=== PATIENT | female | born 1955 | race Caucasian/White ===

== ENCOUNTER 2018-08-22 00:15 | Observation (INO) ==
[2018-08-22] MEDS ORDERED: Metoprolol Inj 5 MG/5 ML Vial IV.PUSH ONE (02:19)
[2018-08-22 02:36] LABS: Bilirubin,Urine Negative (Negative); Clarity,Urine Clear (Clear); Color,Urine Yellow (Yellw/Straw); Glucose,Urine (UA) Negative (Negative); Leukocyte Esterase,Urine Negative (Negative); Nitrite,Urine Negative (Negative); Urobilinogen,Urine 0.2 mg/dL (Less than 2)
--- NOTE | 2018-08-22 02:38 | ED ---
HPI General Chief Complaint: Hypertension Stated Complaint: hypoglycemia/htn x 2 wks Time Seen by Provider: 08/22/18 02:03 Source: patient History of Present Illness HPI narrative: 62-year-old female with a past medical history of hypertension presents to the emergency room complaining of recurrent episodes of palpitations and near syncope. Patient had one episode prior to arrival to the ER while [place] the movie theater. Patient felt a racing heart rate with associated shortness of breath, chills, near syncope and generalized weakness that lasted about 30 minutes. Symptoms resolved spontaneously. Patient denies other symptoms at this time. Patient had multiple episodes similar to this under different circumstances. Patient is noncompliant with hypertension medication or dyslipidemia meds. She smokes regularly but denies alcohol or drug use.Patient also states for the last 2 weeks that she had several episodes of positional syncope from laying supine there is relieved by sitting up immediately. Related Data Home Medications Medication Instructions Recorded Confirmed No Known Home Medications 08/22/18 08/22/18 Allergies Allergy/AdvReac Type Severity Reaction Status Date / Time codeine Allergy Intermediate Shortness Verified 08/22/18 01:07 of Breath meperidine Allergy Intermediate Shortness Verified 08/22/18 01:07 of Breath Review of Systems Constitutional Denies fever(s) Eyes Denies change in vision ENT Denies headache(s) and Denies nasal congestion Cardiovascular Reports rapid heart rate, Reports lightheadedness, Reports palpitations and Reports dyspnea Respiratory Denies dyspnea Gastrointestinal Denies abdominal pain Genitourinary Denies difficulty voiding Musculoskeletal Denies myalgias Integumentary/Breasts Denies rash Neurologic Denies headache(s) Psychiatric Denies depression Endocrine Denies polyuria Hematologic/Lymphatic Denies easy bruising PMFSH Medical History Medical History H/O: hysterectomy (Acute) Hypercholesteremia (Acute) Hypertension (Acute) Surgical History Surgical History Hx of section (Acute) Social History Social History Substance History: No History of Abuse Smoking Status: Current every day smoker Tobacco Type: Cigarettes How Often Do You Have a Drink Containing Alcohol: Monthly or less Immunization History Tetanus Immunization: Unsure Exam [facility] Head: normocephalic and atraumatic Nose: no nasal discharge and no epistaxis Mouth: moist mucous membranes Eyes Sclera: normal sclerae Pupils: PERRL Neck Neck: trachea midline and no JVD Resp Effort & Inspection: no use of accessory muscles Auscultation: clear to auscultation bilaterally Cardio Rate: regular rate Rhythm: regular rhythm Heart Sounds: no murmurs GI Inspection: non-distended Palpation: soft, no hepatosplenomegaly and nontender Skin General: dry skin (warm) Neuro General: alert and awake Cranial Nerves: other Speech: speech normal Motor: no movement abnormalities noted Extrem General: normal to inspection, no clubbing, no cyanosis and no edema Psych Mood: congruent mood Affect: normal affect Judgment: judgment good Course Reevaluation(s) Reevaluation #1: Patient continues to have elevated blood pressure however she denies chest pain. Patient agreed to be admitted to the hospital for observation and blood pressure control. Time: 03:59 Initial Documented Vital Signs Temperature 98.4 F 08/22/18 00:27 Pulse Rate 68 08/22/18 00:27 Respiratory Rate 18 08/22/18 00:27 Blood Pressure 206/89 H 08/22/18 00:27 Pulse Oximetry 99 08/22/18 00:27 Last Documented Vital Signs Temperature 98.4 F 08/22/18 00:27 Pulse Rate 72 08/22/18 03:20 Respiratory Rate 18 08/22/18 03:20 Blood Pressure 183/77 H 08/22/18 03:20 Pulse Oximetry 100 08/22/18 03:20 Medical Decision Making [facility] Narrative Medical Screen Exam Complete: Yes Emergency Medical Condition: Yes Lab Data Result diagrams: 08/22/18 02:35 08/22/18 02:35 Lab Results 08/22/18 08/22/18 08/22/18 Range/Units 02:00 02:35 02:35 CBC w Diff Auto diff final WBC 7.4 (4.0-11.0) th/mm3 RBC 4.61 (4.00-5.30) mil/mm3 Hgb 14.2 (11.6-15.3) gm/dL Hct 42.3 (35.0-46.0) % MCV 91.6 (80.0-100.0) fL MCH 30.8 (27.0-34.0) pg MCHC 33.6 (32.0-36.0) % RDW 12.2 (11.6-17.2) % Plt Count 220 (150-450) th/mm3 MPV 8.4 (7.0-11.0) fL Neut % (Auto) 71.4 H (16.0-70.0) % Lymph % (Auto) 22.2 (9.0-44.0) % [place] % (Auto) 4.2 (0.0-8.0) % Eos % (Auto) 1.4 (0.0-4.0) % Baso % (Auto) 0.8 (0.0-2.0) % Neut # (Auto) 5.2 (1.8-7.7) th/mm3 Lymph # (Auto) 1.7 (1.0-4.8) th/mm3 [place] # (Auto) 0.3 (0.0-0.9) th/mm3 Eos # (Auto) 0.1 (0.0-0.4) th/mm3 Baso # (Auto) 0.1 (0.0-0.2) th/mm3 WBC Differential . Differential Comment . Sodium 140 (136-145) meq/L Potassium 3.8 (3.5-5.1) meq/L Chloride 107 (98-107) meq/L Carbon Dioxide 27.1 (21.0-32.0) meq/L Anion Gap 6 (5-15) meq/L BUN 17 (7-18) mg/dL Creatinine 0.71 (0.50-1.00) mg/dL Estimated GFR 84 L (>89) mL/min Random Glucose 124 H (74-106) mg/dL Calcium 8.6 (8.5-10.1) mg/dL Total Bilirubin 0.3 (0.2-1.0) mg/dL AST 21 (15-37) U/L ALT 44 (10-53) U/L Alkaline Phosphatase 83 (45-117) U/L Troponin I Less than 0.02 L (0.02-0.05) ng/mL Total Protein 7.6 (6.4-8.2) g/dL Albumin 3.8 (3.4-5.0) g/dL Lipase 202 (73-393) U/L Urine Color Yellow (Yellw/Straw) Urine Clarity Clear (Clear) Urine pH 6.0 (5.0-8.5) Ur Specific [place] 1.010 (1.002-1.035) Urine Protein Negative (Neg-Trace) mg/dL Urine Glucose (UA) Negative (Negative) mg/dL Urine Ketones Negative (Negative) mg/dL Urine Occult Blood Small H (Negative) Urine Nitrate Negative (Negative) Urine Bilirubin Negative (Negative) Urine Urobilinogen 0.2 (Less than 2) mg/dL Ur Leukocyte Esterase Negative (Negative) Urine RBC 4-15 H (0-3) /hpf Urine WBC 0-5 (0-5) /hpf Ur Squamous Epith Cells 0-5 (0-5) /hpf Urine Bacteria Few H (None) /hpf Micro UA Comment Culture not ind Ur Microscopic Review Microscopic reviewed Urine Culture Comments Culture not ind Serum Alcohol Less than 3 (0-5) mg/dL Imaging Data Radiologist's impression: Chest X-Ray 08/22/18 02:17 CONCLUSION: No acute cardiopulmonary disease. ECG Data EKG Prior to Arrival: No Attestation: I personally reviewed and interpreted this ECG as follows: Interpretation: Rhythm with a ventricular rate of 61. Normal CO intervals, normal QRS duration and nonspecific T wave changes. Discharge Plan Discharge Disposition Patient Disposition: 30 Still Patient Discharge Condition Condition: Stable Discharge Details Diagnosis: Accelerated hypertension, Heart palpitations, Postural dizziness with near syncope Physicians Team ED Provider: Apolinar Severino Primary Care Provider: Primary Care Mel Osorio Rxs /Orders / Referrals /Forms Prescriptions: No Action No Known Home Medications RF: 0 Discharge Interventions Interventions: Vital Signs Last Done: 08/22/18 01:10 Status ED Status: With Doctor
[2018-08-22] MEDS ORDERED: hydrALAZINE HCl Inj 20 MG/ML Vial IV.PUSH ONE ×3 (02:46→04:20)
[2018-08-22 02:47] LABS: Baso # (Auto) 0.1 th/mm3 (0.0-0.2); Baso % (Auto) 0.8 % (0.0-2.0); Eos # (Auto) 0.1 th/mm3 (0.0-0.4); Eos % (Auto) 1.4 % (0.0-4.0); Hematocrit 42.3 % (35.0-46.0); Hemoglobin 14.2 gm/dL (11.6-15.3); Lymph # (Auto) 1.7 th/mm3 (1.0-4.8); Lymph % (Auto) 22.2 % (9.0-44.0); Mean Corpuscular HGB Conc 33.6 % (32.0-36.0); Mean Corpuscular Hemoglobin 30.8 pg (27.0-34.0); Mean Corpuscular Volume 91.6 fL (80.0-100.0); Mean Platelet Volume 8.4 fL (7.0-11.0); Mono # (Auto) 0.3 th/mm3 (0.0-0.9); Mono % (Auto) 4.2 % (0.0-8.0); Neut # (Auto) 5.2 th/mm3 (1.8-7.7); Neut % (Auto) 71.4 % (16.0-70.0); Platelet Count 220 th/mm3 (150-450); Red Blood Count 4.61 mil/mm3 (4.00-5.30); Red Cell Distribution Width 12.2 % (11.6-17.2); White Blood Count 7.4 th/mm3 (4.0-11.0)
[2018-08-22 02:52] LABS: Bacteria,Urine Few /hpf; Squamous Epithelial Cell,Urine 0-5 /hpf (0-5); WBC,Urine 0-5 /hpf (0-5)
[2018-08-22 02:53] LABS: Chloride 107 meq/L (98-107); Potassium 3.8 meq/L (3.5-5.1); Sodium 140 meq/L (136-145)
[2018-08-22 02:56] LABS: Calcium 8.6 mg/dL (8.5-10.1)
[2018-08-22 02:57] LABS: Albumin 3.8 g/dL (3.4-5.0); Anion Gap 6 meq/L (5-15); Blood Urea Nitrogen 17 mg/dL (7-18); Carbon Dioxide 27.1 meq/L (21.0-32.0); Glucose,Random 124 mg/dL (74-106); Lipase 202 U/L (73-393)
[2018-08-22 03:00] LABS: Alanine Aminotransferase 44 U/L (10-53); Aspartate Aminotransferase 21 U/L (15-37); Glomerular Filtration Rate 84 mL/min (>89)
[2018-08-22] MEDS ORDERED: Metoprolol Inj 5 MG/5 ML Vial IV.PUSH SCH (03:00)
[2018-08-22 03:01] LABS: Total Protein 7.6 g/dL (6.4-8.2)
[2018-08-22 03:03] LABS: Alkaline Phosphatase 83 U/L (45-117)
--- NOTE | 2018-08-22 03:03 | XR ---
EXAM DATE: 08/22/2018 2:36 AM EST AGE/SEX: 62 years / Female INDICATIONS: Shortness of breath. CLINICAL DATA: This is the patient's initial encounter. Patient reports that signs and symptoms have been present for 2 weeks and indicates a pain score of 0/10. MEDICAL/SURGICAL HISTORY: Hypertension. None. COMPARISON: No prior exams available for comparison. FINDINGS: A single AP view of the chest demonstrates the lungs to be symmetrically aerated without evidence of mass, infiltrate or effusion. The cardiomediastinal contours are unremarkable. Osseous structures a re intact. CONCLUSION: No acute cardiopulmonary disease. Electronically signed by: Maycol Muñoz MD 08/22/2018 3:02 AM EST
[2018-08-22] MEDS ORDERED: Bisacodyl 10 MG Supp RECTAL PRN (04:14)
[2018-08-22] MEDS ORDERED: Acetaminophen 325 MG Tablet PO PRN (04:14)
[2018-08-22] MEDS: Sod Chloride 0.9% Inj 1,000 ML IV.CONT SCH ×3 (05:05→23:54)
[2018-08-22] MEDS: Heparin - SQ 10,000 UNITS/ML Vial SQ SCH ×4 (05:05→21:28)
[2018-08-22] MEDS: amLODIPine 5 MG Tablet PO SCH (08:20)
--- NOTE | 2018-08-22 08:35 | ECG ---
Date Performed: 08/22/2018 Time Performed: 02:28:08 PTAGE: 62 years EKG: Sinus rhythm NORMAL ECG NO PREVIOUS TRACING DOCTOR: Jarad Reynoso Interpretating Date/Time 08/22/2018 08:32:31
--- NOTE | 2018-08-22 14:04 | P.HPIM ---
History of Present Illness Primary Care Physician: No Primary Care Physician History of Present Illness: This patient is a 62-year-old female with a diagnosis of hypertension. The patient presented with complaints of recurrent episodes of palpitations and presyncope. She denies losing consciousness. Patient says she felt like her heart was racing and had some shortness of breath with the episode. The episode lasted approximately 30 minutes and then her symptoms end up resolving. She denied having any chest pain with the episode. Patient does have hypertension and is noncompliant with her medication. She says that many times she has noticed that she begins to have symptoms when she stands up from a sitting position rapidly. Orthostatic vital signs which were done in the ER were negative. Past medical history hypertension Past surgical history patient has had 4 C-sections in the past, she has also had a partial hysterectomy in the past. Social history the patient has extensive history of tobacco smoking. She drinks alcohol socially, denies any history of drug use Family history noncontributory. Review of Systems All other systems reviewed negative except as stated in HPI [facility] - History History Provided By: Patient - Medical History Medical History: Medical History (Last Reviewed 08/22/18 @ 02:37 by Apolinar Severino) H/O: hysterectomy Hypercholesteremia Hypertension - Surgical History Surgical History: Surgical History (Last Reviewed 08/22/18 @ 02:37 by Apolinar Severino) Hx of section - Tobacco History Second Hand Smoke Exposure: Yes Tobacco Use In Past 30 Days: Yes Smoking Status: Current every day smoker Tobacco Type: Cigarettes - Alcohol History How Often Do You Have a Drink Containing Alcohol: Monthly or less - Substance Use History Substance History: No History of Abuse - Immunization History Tetanus Immunization: Unsure Medications and Allergies Active Medications: Active Medications Acetaminophen (Tylenol) 650 mg PO Q4H PRN PRN Reason: Temp > 100.4 Amlodipine Besylate (Norvasc) 5 mg PO DAILY [facility] Last Admin: 08/22/18 08:20 Dose: 5 mg Bisacodyl (Dulcolax Supp) 10 mg RECTAL DAILY PRN PRN Reason: SEVERE CONSITIPATION Heparin Sodium (Porcine) (Heparin Inj) 5,000 units SQ Q8H [place] Last Admin: 08/22/18 05:05 Dose: 5,000 units Sodium Chloride (Ns Inj) 1,000 mls @ 100 mls/hr IV.CONT .Q10H [place] Last Admin: 08/22/18 05:05 Dose: 100 mls/hr Ondansetron HCl (Zofran Inj) 4 mg IV.PUSH Q6H PRN PRN Reason: NAUSEA OR VOMITING Sennosides (Senokot) 17.2 mg PO Q12H PRN PRN Reason: Moderate Constipation Sodium Chloride (Ns Flush) 2 ml IV.FLUSH UNSCH PRN PRN Reason: FLUSH AFTER USING IV ACCESS Allergies Allergy/AdvReac Type Severity Reaction Status Date / Time codeine Allergy Intermediate Shortness Verified 08/22/18 01:07 of Breath meperidine Allergy Intermediate Shortness Verified 08/22/18 01:07 of Breath Home Medications Medication Instructions Recorded Confirmed Type No Known Home Medications 08/22/18 08/22/18 History Exam Vital signs: Vital Signs 08/22/18 00:27 08/22/18 01:10 08/22/18 02:43 Temperature 98.4 F Pulse Rate 68 Respiratory Rate 18 Blood Pressure 206/89 H 185/92 H Pulse Oximetry 99 98 08/22/18 02:44 08/22/18 02:51 08/22/18 03:20 Temperature Pulse Rate 58 L 58 L 72 Respiratory Rate 18 18 Blood Pressure 184/81 H 183/77 H Pulse Oximetry 99 100 08/22/18 04:05 08/22/18 04:45 08/22/18 04:52 Temperature Pulse Rate 70 71 Respiratory Rate 16 Blood Pressure 198/99 H 107/55 L 120/59 L Pulse Oximetry 97 08/22/18 05:00 08/22/18 05:37 08/22/18 08:00 Temperature 96.9 F L 97.7 F Pulse Rate 89 94 H 65 Respiratory Rate 16 17 Blood Pressure 139/69 128/75 Pulse Oximetry 99 97 08/22/18 09:00 Temperature Pulse Rate 65 Respiratory Rate Blood Pressure Pulse Oximetry Intake & Output 08/21/18 08/22/18 08/22/18 18:59 06:59 18:59 Weight 62.3 kg Other: Date of Last Bowel Movement 08/21/18 Weight On Admission 62.3 kg Narrative: General patient in no acute distress HEENT extraocular movements are intact, clear oropharyngeal mucosa, no JVD Cardiovascular S1-S2 audible, RRR, no murmurs rubs or gallops Respiratory clear to auscultation bilaterally Abdomen soft, nontender, nondistended, normal bowel sounds Extremities no edema 2+ distal pulses in bilateral upper and lower extremities Neuro cranial nerves II through XII intact, no neurological deficits. Results - Labs CBC & Chem 7: 08/22/18 02:35 08/22/18 02:35 Labs: Short CBC 08/22/18 Range/Units 02:35 WBC 7.4 (4.0-11.0) th/mm3 Hgb 14.2 (11.6-15.3) gm/dL Hct 42.3 (35.0-46.0) % Plt Count 220 (150-450) th/mm3 BMP 08/22/18 02:35 Sodium 140 Potassium 3.8 Chloride 107 Carbon Dioxide 27.1 BUN 17 Creatinine 0.71 Calcium 8.6 Cardiac Enzymes 08/22/18 Range/Units 02:35 Troponin I Less than 0.02 L (0.02-0.05) ng/mL Liver Function 08/22/18 Range/Units 02:35 Total Bilirubin 0.3 (0.2-1.0) mg/dL AST 21 (15-37) U/L ALT 44 (10-53) U/L Alkaline Phosphatase 83 (45-117) U/L Albumin 3.8 (3.4-5.0) g/dL Urine 08/22/18 Range/Units 02:00 Urine Color Yellow (Yellw/Straw) Urine Clarity Clear (Clear) Urine pH 6.0 (5.0-8.5) Ur Specific [place] 1.010 (1.002-1.035) Urine Protein Negative (Neg-Trace) mg/dL Urine Glucose (UA) Negative (Negative) mg/dL - Imaging Impressions Chest X-Ray 08/22/18 02:17 CONCLUSION: No acute cardiopulmonary disease. Caprini VTE Risk Assessment Caprini VTE Risk Assessment: No/Low Risk (score <= 1) Caprini Risk Assessment Model: Point Value = 1 Point Value = 2 Point Value = 3 Point Value = 5 Age 41-60 Minor surgery BMI > 25 kg/m2 Swollen legs Varicose veins or History of unexplained or recurrent spontaneous Oral contraceptives or hormone replacement Sepsis (< 1 month) Serious lung disease, including pneumonia (< 1 month) Abnormal pulmonary function Acute myocardial infarction Congestive heart failure (< 1 month) History of inflammatory bowel disease Medical patient at bed rest Age 61-74 Arthroscopic surgery Major open surgery (> 45 min) Laparoscopic surgery (> 45 min) Malignancy Confined to bed (> 72 hours) Immobilizing plaster cast Central venous access Age >= 75 History of VTE Family history of VTE Factor V Leiden Prothrombin [id number] Lupus anticoagulant Anticardiolipin antibodies Elevated serum homocysteine Heparin-induced thrombocytopenia Other congenital or acquired thrombophilia Stroke (< 1 month) Elective arthroplasty Hip, pelvis, or leg fracture Acute spinal cord injury (< 1 month) Prophylaxis Regimen: Total Risk Factor Score Risk Level Prophylaxis Regimen 0-1 Low Early ambulation 2 Moderate Order ONE of the following: *Sequential Compression Device (SCD) *Heparin 5000 units SQ BID 3-4 Higher Order ONE of the following medications: *Heparin 5000 units SQ TID *Enoxaparin/Lovenox 40 mg SQ daily (WT < 150 kg, CrCl > 30 mL/min) *Enoxaparin/Lovenox 30 mg SQ daily (WT < 150 kg, CrCl > 10-29 mL/min) *Enoxaparin/Lovenox 30 mg SQ BID (WT < 150 kg, CrCl > 30 mL/min) AND/OR *Sequential Compression Device (SCD) 5 or more Highest Order ONE of the following medications: *Heparin 5000 units SQ TID (Preferred with Epidurals) *Enoxaparin/Lovenox 40 mg SQ daily (WT < 150 kg, CrCl > 30 mL/min) *Enoxaparin/Lovenox 30 mg SQ daily (WT < 150 kg, CrCl > 10-29 mL/min) *Enoxaparin/Lovenox 30 mg SQ BID (WT < 150 kg, CrCl > 30 mL/min) AND *Sequential Compression Device (SCD) Assessment and Plan - Plan This patient is a 62-year-old female with a diagnosis of hypertension. The patient presented with complaints of recurrent episodes of palpitations and presyncope. She denies losing consciousness. Patient says she felt like her heart was racing and had some shortness of breath with the episode. The episode lasted approximately 30 minutes and then her symptoms end up resolving. She denied having any chest pain with the episode. Patient does have hypertension and is noncompliant with her medication. She says that many times she has noticed that she begins to have symptoms when she stands up from a sitting position rapidly. Orthostatic vital signs which were done in the ER were negative. 1. Presyncope concern for arrhythmia Patient has been a symptom medic since arrival to our facility. Troponins negative on admission. EKG shows normal sinus rhythm no acute ST segment or T wave changes. 2D echocardiogram is pending Ultrasound of carotids is pending Patient will likely need a Holter monitor or loop recorder placed as the patient has been having recurrent symptoms. Continue to monitor on telemetry. 2. History of hypertension Patient has a history of hypertension. Currently blood pressure is under control. H&P: Quality - VTE Deep Vein Thrombosis/Pulmonary Embolism Present on Admission: No
--- NOTE | 2018-08-22 14:43 | US ---
EXAM DATE: 08/22/2018 2:38 PM EST AGE/SEX: 62 years / Female INDICATIONS: Dizziness with near syncope. CLINICAL DATA: This is the patient's initial encounter. Patient reports that signs and symptoms have been present for 1 day and indicates a pain score of 0/10. MEDICAL/SURGICAL HISTORY: Hypercholesterolemia. Hypertension. Hysterectomy. section. COMPARISON: No prior exams available for comparison. VELOCITY PARAMETERS: ICA/CCA Ratio: Right 0.9 , Left 1.3 ICA: Right 91 cm/sec, Left 121 cm/sec CCA: Right 103 cm/sec, Left 93 cm/sec ECA: Right 134 cm/sec, Left 81 cm/sec Vertebral: Right 57 cm/sec antegrade, Left 56 cm/sec antegrade FINDINGS: Right Carotid: No significant plaque is visualized.The waveforms are within normal limits. Left Carotid: No significant plaque is visualized. The waveforms are within normal limits. Other: None. CONCLUSION: Negative carotid ultrasound examination. Electronically signed by: Binh Fairbanks MD 08/22/2018 2:42 PM EST
[2018-08-23] MEDS: Heparin - SQ 10,000 UNITS/ML Vial SQ SCH ×2 (05:17→15:22)
[2018-08-23 06:36] LABS: Baso % (Auto) 0.3 % (0.0-2.0); Eos # (Auto) 0.2 th/mm3 (0.0-0.4); Hematocrit 36.1 % (35.0-46.0); Hemoglobin 12.4 gm/dL (11.6-15.3); Lymph # (Auto) 2.6 th/mm3 (1.0-4.8); Lymph % (Auto) 41.2 % (9.0-44.0); Mean Corpuscular HGB Conc 34.3 % (32.0-36.0); Mean Corpuscular Hemoglobin 31.2 pg (27.0-34.0); Mean Corpuscular Volume 91.2 fL (80.0-100.0); Mean Platelet Volume 9.6 fL (7.0-11.0); Mono # (Auto) 0.4 th/mm3 (0.0-0.9); Mono % (Auto) 5.8 % (0.0-8.0); Neut # (Auto) 3.1 th/mm3 (1.8-7.7); Neut % (Auto) 49.7 % (16.0-70.0); Platelet Count 183 th/mm3 (150-450); Red Blood Count 3.96 mil/mm3 (4.00-5.30); Red Cell Distribution Width 12.6 % (11.6-17.2); White Blood Count 6.3 th/mm3 (4.0-11.0)
[2018-08-23 06:39] LABS: Chloride 110 meq/L (98-107); Potassium 3.6 meq/L (3.5-5.1); Sodium 142 meq/L (136-145)
[2018-08-23 06:52] LABS: Anion Gap 6 meq/L (5-15); Blood Urea Nitrogen 11 mg/dL (7-18); Calcium 7.6 mg/dL (8.5-10.1); Glomerular Filtration Rate Greater Than 89 mL/min (>89); Glucose,Random 94 mg/dL (74-106)
[2018-08-23] MEDS: amLODIPine 5 MG Tablet PO SCH (08:47)
[2018-08-23] MEDS: Sod Chloride 0.9% Inj 1,000 ML IV.CONT SCH (10:34)
--- NOTE | 2018-08-23 11:18 | P.PNIM ---
Subjective Interval history: Patient does not have any complaints this morning. No chest pain, no palpitations, no shortness of breath. Physical Exam Vital signs: Vital Signs 08/22/18 12:00 08/22/18 16:00 08/22/18 20:00 Temperature 98.2 F 99.3 F 99.1 F Pulse Rate 82 77 80 Respiratory Rate 20 20 20 Blood Pressure 139/70 129/60 118/75 Pulse Oximetry 98 98 97 08/23/18 00:00 08/23/18 00:04 08/23/18 04:00 Temperature 98.7 F 98.2 F Pulse Rate 65 61 65 Respiratory Rate 20 20 Blood Pressure 135/66 144/74 H Pulse Oximetry 98 97 08/23/18 08:00 Temperature 98.6 F Pulse Rate 70 Respiratory Rate 20 Blood Pressure 152/70 H Pulse Oximetry 97 Intake & Output 08/22/18 08/23/18 08/23/18 18:59 06:59 18:59 Intake Total 1410 / 1410 1480 / 1480 1000 / 1000 Balance 1410 / 1410 1480 / 1480 1000 / 1000 Weight 64.7 kg Intake: IV 1000 / 1000 1000 / 1000 1000 / 1000 NS Inj 1,000 ML @ 100 mls/hr IV 1000 / 1000 1000 / 1000 1000 / 1000 .CONT .Q10H [place] Rx#:[id number] Oral 410 / 410 480 / 480 Other: # Voids 5 2 Date of Last Bowel Movement 08/21/18 # Bowel Movements 1 Narrative: General patient in no acute distress HEENT extraocular movements are intact, clear oropharyngeal mucosa, no JVD Cardiovascular S1-S2 audible, RRR, no murmurs rubs or gallops Respiratory clear to auscultation bilaterally Abdomen soft, nontender, nondistended, normal bowel sounds Extremities no edema 2+ distal pulses in bilateral upper and lower extremities Neuro cranial nerves II through XII intact Results - Labs CBC & Chem 7: 08/23/18 05:30 08/23/18 05:30 Laboratory Results - last 24 hr 08/23/18 08/23/18 05:30 05:30 CBC w Diff Auto diff final WBC 6.3 RBC 3.96 L Hgb 12.4 Hct 36.1 MCV 91.2 MCH 31.2 MCHC 34.3 RDW 12.6 Plt Count 183 MPV 9.6 Neut % (Auto) 49.7 Lymph % (Auto) 41.2 [place] % (Auto) 5.8 Eos % (Auto) 3.0 Baso % (Auto) 0.3 Neut # (Auto) 3.1 Lymph # (Auto) 2.6 [place] # (Auto) 0.4 Eos # (Auto) 0.2 Baso # (Auto) 0.0 WBC Differential . Differential Comment . Sodium 142 Potassium 3.6 Chloride 110 H Carbon Dioxide 26.0 Anion Gap 6 BUN 11 Creatinine 0.66 Estimated GFR Greater than 89 Random Glucose 94 Calcium 7.6 L D - Imaging Impressions Carotid Doppler Study 08/22/18 00:00 CONCLUSION: Negative carotid ultrasound examination. Assessment and Plan - Plan This patient is a 62-year-old female with a diagnosis of hypertension. The patient presented with complaints of recurrent episodes of palpitations and presyncope. She denies losing consciousness. Patient says she felt like her heart was racing and had some shortness of breath with the episode. The episode lasted approximately 30 minutes and then her symptoms end up resolving. She denied having any chest pain with the episode. Patient does have hypertension and is noncompliant with her medication. She says that many times she has noticed that she begins to have symptoms when she stands up from a sitting position rapidly. Orthostatic vital signs which were done in the ER were negative. 1. Presyncope concern for arrhythmia Patient has been asymptomatic since arrival to our facility. No complaints of chest pain, no shortness of breath. Troponins negative on admission. EKG shows normal sinus rhythm no acute ST segment or T wave changes. 2D echocardiogram was done which is not show any significant abnormality. Ultrasound of the carotids are negative Patient was given a prescription for a Holter monitor. She was also given instructions on how to obtain a primary care physician. I recommend that she follows up with her primary care physician within 1 week. Patient will need routine care from a primary care physician including TSH. No significant events noted on telemetry. 2. History of hypertension Patient has a history of hypertension. Currently blood pressure is under control.
[2018-08-23 17:15] VITALS: BP 144/69; RESP 20; TEMP 98.8; O2SAT 96
--- NOTE | 2018-08-23 18:31 | ECHRPT ---
Indication: CONCLUSIONS The left ventricular systolic function is normal with an estimated ejection fraction in the range of 60-65%. Normal left ventricular size. Wall thickness is normal. No regional wall motion abnormalities are present. aortic valve sclerosis BP: / HR: Rhythm: Sinus MEASUREMENTS (Male / Female) Normal Values Technical Quality:Good 2D ECHO LV Diastolic Diameter PLAX 3.4 cm 4.2 - 5.9 / 3.9 - 5.3 cm LV Systolic Diameter PLAX 1.9 cm IVS Diastolic Thickness 0.9 cm 0.6 - 1.0 / 0.6 - 0.9 cm LVPW Diastolic Thickness 0.9 cm 0.6 - 1.0 / 0.6 - 0.9 cm LV Relative Wall Thickness 0.5 RV Internal Dim ED PLAX 2.6 cm LVOT Diameter 1.7 cm LA Systolic Diameter LX 2.6 cm 3.0 - 4.0 / 2.7 - 3.8 cm LV Ejection Fraction MOD 4C 63.4 % LV Ejection Fraction 4C AL 63.6 % M-MODE Aortic Root Diameter MM 1.6 cm LA Systolic Diameter MM 3.0 cm LA Ao Ratio MM 1.9 AV Cusp Separation MM 1.6 cm DOPPLER AV Peak Velocity 144.0 cm/s AV Peak Gradient 8.3 mmHg LVOT Peak Velocity 103.0 cm/s LVOT Peak Gradient 4.2 mmHg AV Area Cont Eq pk 1.6 cm MV Area PHT 3.1 cm Mitral E Point Velocity 99.2 cm/s Mitral A Point Velocity 72.6 cm/s Mitral E to A Ratio 1.4 LV E' Lateral Velocity 10.8 cm/s Mitral E to LV E' Lateral Ratio 9.2 LV E' Septal Velocity 6.8 cm/s Mitral E to LV E' Septal Ratio 14.5 PV Peak Velocity 96.4 cm/s PV Peak Gradient 3.7 mmHg FINDINGS LEFT VENTRICLE The left ventricular systolic function is normal with an estimated ejection fraction in the range of 60-65%. Normal left ventricular size. Wall thickness is normal. No regional wall motion abnormalities are present. RIGHT VENTRICLE Normal right ventricular size and systolic function. LEFT ATRIUM The left atrial size is normal. RIGHT ATRIUM The right atrial size is normal. ATRIAL SEPTUM Normal atrial septal thickness without atrial level shunting by limited color doppler interrogation. AORTA The aortic root and proximal ascending aorta are normal in size on limited imaging. MITRAL VALVE Structurally normal mitral valve. No mitral valve stenosis or regurgitation. AORTIC VALVE Trileaflet aortic valve. No aortic valve stenosis or regurgitation. TRICUSPID VALVE Structurally normal tricuspid valve. No tricuspid valve stenosis or regurgitation. PULMONARY VALVE The pulmonary valve is not well visualized. VESSELS The inferior vena cava is normal in size. PERICARDIUM No pericardial effusion. Freedom Mae MD, FACC, [facility] (Electronically Signed) Final Date:23 August 2018 18:30
[2018-08-23 19:37] VITALS: PULSE 60
== END 2018-08-23 19:04 | disposition home or self-care (01) ==
LOC: PHEDA 00:15 → PHED 00:15 → PH3 04:57
PROVIDERS: ADMIT Hospitalist; ATTEND Hospitalist
DX: R00.0 Tachycardia, unspecified; Z88.5 Allergy status to narcotic agent; R53.1 Weakness; R68.83 Chills (without fever); I10 Essential (primary) hypertension; Z91.14 Patient's other noncompliance with medication regimen; E78.5 Hyperlipidemia, unspecified; R55 Syncope and collapse; Z90.710 Acquired absence of both cervix and uterus; E16.2 Hypoglycemia, unspecified; F17.210 Nicotine dependence, cigarettes, uncomplicated; E78.00 Pure hypercholesterolemia, unspecified